=== PATIENT | male | born 1990 ===

== ENCOUNTER → 2017-10-24 | Outpatient (REF) ==
--- NOTE | 2017-10-24 16:52 | Diagnostic Imaging Report ---
INDICATION: Low back pain after lifting injury. FINDINGS: AP and lateral views of the lumbar spine show normal vertebral body height and alignment. Disc spaces are well maintained. IMPRESSION: Negative lumbar spine. Dictated by: Dictated on workstation # [id number]
== END | disposition home or self-care (01) ==
LOC: OCC 14:52
PROVIDERS: ATTEND Family Medicine
CPT/HCPCS: 72100